=== PATIENT | male | born 1940 | race Caucasian/White ===

== ENCOUNTER 2017-05-18 06:45 | Observation (INO) | payer MEDICARE ==
[~2017-05-18] VITALS: Ht 182.9 cm; Wt 93.3 kg
[2017-05-18 07:44] LABS: BASOPHILS % (AUTO) 0.5 % (0.0-5.0); EOSINOPHILS % (AUTO) 1.6 % (0.0-8.0); HEMATOCRIT 43.4 % (42-54); LYMPHOCYTES % (AUTO) 3.2 % (21.0-51.0); MEAN CORPUSCULAR HEMOGLOBIN 31.2 pg (27.0-33.0); MEAN CORPUSCULAR VOLUME 91.7 fL (79-99); MONOCYTES % (AUTO) 12.6 % (3.0-13.0); NEUTROPHILS % (AUTO) 82.1 % (40.0-77.0); PLATELET COUNT (AUTO) 234 K/uL (130-400); RED BLOOD CELL COUNT(AUTO) 4.73 MIL/uL (4.50-6.20); RED CELL DISTRIBUTION WIDTH 14.2 % (11.0-15.5)
[2017-05-18 07:50] LABS: CARBON DIOXIDE 28 mmol/L (21-32); CHLORIDE 104 mmol/L (101-111); CREATININE 1.2 mg/dL (0.5-1.5); GLOMERULAR FILTR. RATE CALC 63 mL/min (>60); GLUCOSE,RANDOM 100 mg/dL (70-105); POTASSIUM 3.4 mmol/L (3.5-5.1); SODIUM SERUM 140 mmol/L (136-145); UREA NITROGEN, BLOOD 12 mg/dL (7-18)
[2017-05-18] MEDS ORDERED: ACETAMINOPHEN 325 MG TAB ONE (07:52)
[2017-05-18] MEDS ORDERED: SODIUM CHLORIDE 0.9% 1000ML 3,000 ML IV ONE (07:52)
[2017-05-18 07:57] LABS: APPEARANCE,URINE Clear (CLEAR); BILIRUBIN,URINE Negative (NEGATIVE); COLOR,URINE Yellow (YELLOW); GLUCOSE, URINE (UA) Negative (NEGATIVE); KETONES,URINE Negative (NEGATIVE); LEUKOCYTE ESTERASE ,URINE Negative (NEGATIVE); NITRATE,URINE Negative (NEGATIVE); OCCULT BLOOD,URINE Negative (NEGATIVE); PROTEIN,URINE Negative (NEGATIVE); UROBILINOGEN,URINE 0.2 mg/dL (0.2-1.0)
[2017-05-18 08:00] LABS: INR 0.98 (0.85-1.15); PARTIAL THROMBOPLASTIN TIME 27.9 SEC (26.3-35.5); PROTHROMBIN TIME 10.3 SEC (9.6-11.6)
[2017-05-18 08:05] LABS: ALANINE AMINOTRANSFERASE 31 U/L (12-78); ALBUMIN 3.6 g/dL (3.5-5.0); ASPARTATE AMINOTRANSFERASE 18 U/L (10-37); BILIRUBIN,TOTAL 0.5 mg/dL (0.2-1.0); CREATINE KINASE MB 0.8 ng/mL (0.5-3.6); CREATINE KINASE, TOTAL 136 U/L (21-232); MYOGLOBIN 69 ng/mL (10-92); TOTAL PROTEIN, SERUM 6.7 g/dL (6.0-8.3); TROPONIN I < 0.04 ng/mL (0.00-0.06)
[2017-05-18] MEDS ORDERED: LEVOFLOXACIN 750 MG/D5W 150 ML 150 ML ONE (08:17)
[2017-05-18] MEDS ORDERED: IPRATROPIUM/ALBUTEROL SULFATE 3 ML SOLUTION IH ONE (09:02)
[2017-05-18] MEDS ORDERED: METHYLPREDNISOLONE SOD SUCC 125MG/2ML VIAL ONE (09:31)
[2017-05-18] MEDS ORDERED: DiphenhydrAMINE HCL 50 MG/ML VIAL IV PRN (10:15)
[2017-05-18] MEDS ORDERED: ZOLPIDEM TARTRATE 5 MG TAB PO PRN (10:15)
[2017-05-18] MEDS ORDERED: ONDANSETRON HCL 4 MG/2 ML VIAL IV PRN (10:15)
[2017-05-18] MEDS ORDERED: MAG HYDROX/AL HYDROX/SIMETH ES 30 ML SUSP UDCUP PO PRN (10:15)
[2017-05-18] MEDS ORDERED: CEFTRIAXONE 1GM/D5W 50ML 50 ML IV SCH (10:15)
[2017-05-18] MEDS ORDERED: ACETAMINOPHEN-CODEINE 300/30MG TAB PO PRN (10:15)
[2017-05-18] MEDS ORDERED: NITROGLYCERIN 0.4 MG SL TAB SL PRN (10:15)
[2017-05-18] MEDS ORDERED: HYDRALAZINE HCL 20 MG/ML VIAL IV PRN (10:15)
[2017-05-18] MEDS ORDERED: MORPHINE SULFATE 2 MG/ML 1ML SYG IV PRN (10:15)
[2017-05-18] MEDS ORDERED: LACTULOSE 20 GM/30 ML UDCUP PO PRN (10:15)
[2017-05-18] MEDS: IPRATROPIUM/ALBUTEROL SULFATE 3 ML SOLUTION IH SCH ×2 (12:00→18:51)
[2017-05-18 12:47] VITALS: BP 131/51
[2017-05-18] MEDS: AZITHROMYCIN 500MG+NS 250ML 250 ML IV SCH (13:24)
[2017-05-18 16:00] VITALS: BP 141/60
[2017-05-18] MEDS: CEFTRIAXONE SODIUM 1 GM IVP SCH (18:14)
[2017-05-18 20:00] VITALS: BP 140/61
[2017-05-18] MEDS: GUAIFENESIN-DM 200/20 MG 10 ML PO PRN (21:10)
[2017-05-18] MEDS: FAMOTIDINE 20MG TAB 20 MG TAB PO SCH (21:10)
[2017-05-19] VITALS: BP 108/60
[2017-05-19] MEDS: IPRATROPIUM/ALBUTEROL SULFATE 3 ML SOLUTION IH SCH ×4 (00:47→18:31)
[2017-05-19 04:00] VITALS: BP 120/66
[2017-05-19 04:11] LABS: BASOPHILS % (AUTO) 0.5 % (0.0-5.0); HEMATOCRIT 40.2 % (42-54); LYMPHOCYTES % (AUTO) 4.1 % (21.0-51.0); MEAN CORPUSCULAR HEMOGLOBIN 31.4 pg (27.0-33.0); MEAN CORPUSCULAR VOLUME 92.4 fL (79-99); MONOCYTES % (AUTO) 8.9 % (3.0-13.0); NEUTROPHILS % (AUTO) 86.5 % (40.0-77.0); PLATELET COUNT (AUTO) 232 K/uL (130-400); RED BLOOD CELL COUNT(AUTO) 4.35 MIL/uL (4.50-6.20); RED CELL DISTRIBUTION WIDTH 14.1 % (11.0-15.5); WHITE BLOOD COUNT (AUTO) 7.7 K/uL (4.8-10.8)
[2017-05-19 04:14] LABS: CREATININE 1.2 mg/dL (0.5-1.5); POTASSIUM 3.8 mmol/L (3.5-5.1)
[2017-05-19 07:55] VITALS: BP 121/61
[2017-05-19] MEDS ORDERED: ENOXAPARIN SODIUM 40 MG/0.4 ML SYRINGE SQ SCH (09:00)
[2017-05-19] MEDS: FAMOTIDINE 20MG TAB 20 MG TAB PO SCH ×2 (09:33→22:12)
[2017-05-19 11:48] VITALS: BP 112/53
[2017-05-19] MEDS: AZITHROMYCIN 500MG+NS 250ML 250 ML IV SCH (14:18)
[2017-05-19] MEDS: CEFTRIAXONE SODIUM 1 GM IVP SCH (15:54)
[2017-05-19 16:00] VITALS: BP 139/77
[2017-05-19 20:00] VITALS: BP 132/83
[2017-05-19] MEDS: GUAIFENESIN-DM 200/20 MG 10 ML PO PRN (22:12)
[2017-05-20] VITALS: BP 134/86
[2017-05-20] MEDS: IPRATROPIUM/ALBUTEROL SULFATE 3 ML SOLUTION IH SCH ×2 (00:24→06:09)
[2017-05-20 04:00] VITALS: BP 150/82
[2017-05-20 08:00] VITALS: BP 151/81
[2017-05-20] MEDS ORDERED: GUAIFDM PO (08:15)
[2017-05-20] MEDS ORDERED: AZIT500T4 PO (08:15)
[2017-05-20] MEDS ORDERED: CEFD300C3 PO (08:15)
[2017-05-20] MEDS ORDERED: ALBU8.5H8 IH (09:37)
[2017-05-20] MEDS: FAMOTIDINE 20MG TAB 20 MG TAB PO SCH (10:06)
== END 2017-05-20 10:30 | disposition home or self-care (01) ==
LOC: EDH 06:45 → EDHIP 10:04 → 3BH 11:41
PROVIDERS: ADMIT Family Medicine; ATTEND Family Medicine
DX: J20.9 Acute bronchitis, unspecified (principal); C85.90 Non-Hodgkin lymphoma, unspecified, unspecified site; Z85.038 Personal history of other malignant neoplasm of large intestine; Z79.899 Other long term (current) drug therapy
CPT/HCPCS: 36415 ×2; 71045; 80048; 80053; 81003; 82550; 82553; 83605; 83874; 84484; 85025 ×2; 85610; 85730; 87040 ×2; 87088; 87804 ×2; 93005; 94640 ×10; 94664; 96365; 96366; 96372; 96375; 96376; 99285; A4218; G0378 ×48; J0456 ×2; J0696; J1650; J1956; J2930; J7030